=== PATIENT | male | born 1990 | race Two or more races ===

== ENCOUNTER 2016-07-15 17:09 | Emergency (ER) | payer MEDICAID ==
[~2016-07-15] VITALS: Ht 177.8 cm; Wt 68.0 kg
[2016-07-15 22:42] LABS: Basophils # (auto) 0.1 uL; Basophils % (auto) 0.9 % (0.0-2.0); Eosinophils # (auto) 0.3 uL; Eosinophils % (auto) 3.6 % (0.0-7.0); Hematocrit 42.5 % (41.0-53.0); Hemoglobin 14.5 g/dL (13.5-17.5); Lymphocytes # (auto) 3.2 uL; Lymphocytes % (auto) 39.8 % (10.0-50.0); Mean Corpuscular Hemoglobin 32.3 pg (28.0-32.0); Mean Corpuscular Volume 94.9 fL (80.0-100.0); Mean Platelet Volume 7.4 fL (7.4-10.4); Monocytes # (auto) 0.8 uL; Monocytes % (auto) 9.6 % (0.0-12.0); Neutrophils # (auto) 3.7 uL; Neutrophils % (auto) 46.1 % (37.0-80.0); Platelet Count (auto) 254 10^3/uL (140-450); Red Cell Distribution Width 13.7 % (11.6-16.0); White Blood Cell 7.9 10^3/uL (4.4-10.8)
[2016-07-15 23:02] LABS: Albumin 3.2 g/dL (3.4-5.0); Calcium 8.4 mg/dL (8.5-10.1); Potassium 3.4 mmol/L (3.5-5.1)
[2016-07-15 23:05] LABS: Bilirubin, Total 0.7 mg/dL (0.2-1.0); Total Protein 7.2 g/dL (6.4-8.2)
[2016-07-15] MEDS ORDERED: SODIUM CHLORIDE 0.9% 1,000 ML IV ONE (23:08)
[2016-07-16 00:22] VITALS: BP 133/72
== END 2016-07-16 00:31 | disposition home or self-care (01) ==
LOC: ER 17:09 → EDBD 17:09 → ER 07-16 00:30
DX: E86.0 Dehydration (principal); Z59.0 Homelessness; F17.210 Nicotine dependence, cigarettes, uncomplicated; F15.10 Other stimulant abuse, uncomplicated
CPT/HCPCS: 36415; 80053; 85025; 99284; J7030

== ENCOUNTER 2018-09-19 21:57 | Inpatient (IN) | payer MEDICAID ==
[~2018-09-19] VITALS: Ht 175.3 cm; Wt 74.1 kg
[2018-09-19 23:15] LABS: Basophils # (auto) 0.1 uL; Basophils % (auto) 1.2 % (0.0-2.0); Eosinophils # (auto) 0.1 uL; Eosinophils % (auto) 0.9 % (0.0-7.0); Hematocrit 48.3 % (41.0-53.0); Hemoglobin 16.5 g/dL (13.5-17.5); Lymphocytes # (auto) 2.9 uL; Lymphocytes % (auto) 26.5 % (10.0-50.0); Mean Corpuscular Hemoglobin 32.7 pg (28.0-32.0); Mean Corpuscular Hgb Conc. 34.2 g/dL (32.0-36.0); Mean Corpuscular Volume 95.7 fL (80.0-100.0); Monocytes # (auto) 1.1 uL; Monocytes % (auto) 9.8 % (0.0-12.0); Neutrophils # (auto) 6.8 uL; Neutrophils % (auto) 61.6 % (37.0-80.0); Nucleated Red Blood Cells % 0.1 %; Platelet Count (auto) 413 10^3/uL (140-450); Red Blood Cells 5.05 10^6/uL (4.5-5.90); Red Cell Distribution Width 13.1 % (11.8-14.3); White Blood Cell 11.1 10^3/uL (4.4-10.8)
[2018-09-19 23:40] LABS: Albumin 4.2 g/dL (3.4-5.0); BUN/Creatinine Ratio 14.4; Calcium 9.2 mg/dL (8.5-10.1); Potassium 3.4 mmol/L (3.5-5.1)
[2018-09-19 23:43] LABS: Bilirubin, Total 0.9 mg/dL (0.2-1.0)
[2018-09-20] MEDS ORDERED: VANCOMYCIN 1GM/250ML 250 ML IV ONE (04:00)
[2018-09-20] MEDS ORDERED: PIPERACILLIN-TAZOB 3.375GM 100 ML IV ONE (04:00)
[2018-09-20] MEDS ORDERED: ONDANSETRON HCL 4 MG/2 ML VIAL IV PRN (07:00)
[2018-09-20] MEDS ORDERED: HYDROcodone-ACET 5/325MG TAB PO PRN (07:00)
[2018-09-20] MEDS ORDERED: ACETAMINOPHEN 500 MG TAB PO PRN (07:00)
[2018-09-20 07:07] LABS: Urine Bacteria FEW /hpf (None Seen); Urine Blood Negative /uL (Negative); Urine Mucus FEW (None Seen); Urine Specific Gravity 1.024 (1.001-1.035); Urine WBC 2 /hpf (0 - 3)
[2018-09-20 07:20] LABS: Basophils # (auto) 0.1 uL; Basophils % (auto) 1.3 % (0.0-2.0); Eosinophils # (auto) 0.1 uL; Eosinophils % (auto) 1.8 % (0.0-7.0); Hematocrit 41.6 % (41.0-53.0); Hemoglobin 14.8 g/dL (13.5-17.5); Mean Corpuscular Hgb Conc. 35.6 g/dL (32.0-36.0); Mean Corpuscular Volume 95.4 fL (80.0-100.0); Monocytes # (auto) 0.8 uL; Monocytes % (auto) 10.2 % (0.0-12.0); Neutrophils # (auto) 4.6 uL; Neutrophils % (auto) 60.7 % (37.0-80.0); Nucleated Red Blood Cells % 0.1 %; Platelet Count (auto) 322 10^3/uL (140-450); Red Blood Cells 4.36 10^6/uL (4.5-5.90); Red Cell Distribution Width 13.2 % (11.8-14.3); White Blood Cell 7.6 10^3/uL (4.4-10.8)
[2018-09-20 07:30] LABS: Alcohol, Urine < 3.0 mg/dL (0-5); Amphetamine Screen, Urine POSITIVE (NEGATIVE); Barbiturate Scree,Urine NEGATIVE (NEGATIVE); Benzodiazephine Screen, Urine NEGATIVE (NEGATIVE); Cannabinoid Screen, Urine POSITIVE (NEGATIVE); Cocaine Screen, Urine NEGATIVE (NEGATIVE); Opiate Scree,Urine NEGATIVE (NEGATIVE); Phencyclidine Screen, Urine NEGATIVE (NEGATIVE)
[2018-09-20 07:37] LABS: BUN/Creatinine Ratio 12.5; Calcium 8.7 mg/dL (8.5-10.1); Potassium 3.5 mmol/L (3.5-5.1)
[2018-09-20] MEDS: cefTRIAXone 1GM/50ML D5W 50 ML IV SCH (09:07)
[2018-09-20] MEDS: FAMOTIDINE 20 MG TAB PO SCH (09:32)
--- NOTE | 2018-09-20 13:55 | NUR ---
MS admit from ER [facility] admitted to tele/MS after SBAR received. Patient oriented to Lida Sanches, RN primary RN, unit, room, bed, and unit policies regarding patient care and visiting hours. Patient weighed by bedscale and encouraged to call if he needs something. All questions and concerns addressed, patient verbalized understanding. Note:
[2018-09-20] MEDS: CLINDAMYCIN 600MG IV 50 ML IV SCH ×2 (15:45→21:52)
--- NOTE | 2018-09-20 16:15 | NUR ---
WOUND CARE NOTE: Wound care in to see patient per wound care request regarding"Right fourth finger laceration/cellulitis". Patient is 27 years old male with admitting diagnosis of R Ring Finger Cellulitis. Patient is resting in bed in Rm 235. He's awake,alert and oriented. He's in no stated pain at this time. He's ambulatory and able to turn and reposition self. His current Hilario score is 22. Noted patient's R 4th finger has 0.5x3x0.3cm laceration. Wound is red with bright red edematous periwound, no drainage, no odor noted. Patient is not aware how he got the wound, he denies any trauma to his R 4th finger. Bedside nurse sent wound culture specimen to lab for processing. Cleansed patient's Rt 4th finger wound with wound cleanser, patted dry with sterile gauze, applied Thera honey gel ,covered with Opti foam dressing, secured with CoBan. Patient tolerated well and denies any other wound. RECOMMENDATION: Daily/PRN dressing change to R 4th finger wound, elevate affected extremity on pillows, continue monitoring by wound care while patient is hospitalized. Addendum: 09/20/18 at 1832 by Michelle Leiva RN Amended: Links added.
[2018-09-20 17:00] VITALS: BP 129/73
--- NOTE | 2018-09-20 19:20 | NUR ---
OPENING SHIFT NOTE Assumed care of patient, who is A&O x4. Currently on RA with no s/s of SOB or distress. Denies pain at this time. Patient is ambulatory without the use of assistive devices. Dressing to right fourth finger is CDI. POC discussed with patient who verbalizes understanding. Bed is in low locked position with side rails up x2. Patient encouraged to call for assistance when needed. Will continue to monitor for changes PRN.
[2018-09-20 22:20] VITALS: BP 134/72
[2018-09-21 05:21] VITALS: BP 117/65
[2018-09-21] MEDS: CLINDAMYCIN 600MG IV 50 ML IV SCH ×3 (05:38→22:25)
--- NOTE | 2018-09-21 05:38 | NUR ---
IV REMOVAL Patient found with 18 gauge IV dislodged from left AC. Catheter is fully intact. pressure dressing applied. Linens changed.
--- NOTE | 2018-09-21 07:30 | NUR ---
Opening Shift Note Assumed care of patient, awake and alert. No S/S of distress/SOB or pain. Instructed on POC and to call for assist PRN, will continue to monitor for changes Q1hr and PRN. Bed in low and locked position, rails up x2, no-slip socks on. Patient completed shower independently.
[2018-09-21 08:33] LABS: Basophils # (auto) 0.1 uL; Eosinophils # (auto) 0.1 uL; Hemoglobin 14.9 g/dL (13.5-17.5); Lymphocytes # (auto) 2.1 uL; Lymphocytes % (auto) 28.3 % (10.0-50.0); Mean Corpuscular Hemoglobin 33.5 pg (28.0-32.0); Mean Corpuscular Hgb Conc. 34.6 g/dL (32.0-36.0); Monocytes # (auto) 0.8 uL; Monocytes % (auto) 10.9 % (0.0-12.0); Neutrophils # (auto) 4.2 uL; Neutrophils % (auto) 57.8 % (37.0-80.0); Platelet Count (auto) 301 10^3/uL (140-450); Red Blood Cells 4.43 10^6/uL (4.5-5.90); Red Cell Distribution Width 13.3 % (11.8-14.3); White Blood Cell 7.3 10^3/uL (4.4-10.8)
[2018-09-21 08:54] LABS: BUN/Creatinine Ratio 16.7; Calcium 8.9 mg/dL (8.5-10.1); Potassium 4.3 mmol/L (3.5-5.1)
[2018-09-21] MEDS: FAMOTIDINE 20 MG TAB PO SCH (08:56)
[2018-09-21] MEDS: cefTRIAXone 1GM/50ML D5W 50 ML IV SCH (08:57)
[2018-09-21 09:15] VITALS: BP 124/66
[2018-09-21 12:59] VITALS: BP 117/68
--- NOTE | 2018-09-21 14:40 | NUR ---
DR MCKEE AT BEDSIDE
[2018-09-21 17:04] VITALS: BP 132/69
--- NOTE | 2018-09-21 19:45 | NUR ---
Opening Shift Note Assumed care of patient, awake and alert, ambulatory. No S/S of distress/SOB or pain. dressing to right 4th finger dry and intact. Instructed on POC and to call for assist PRN, patient verbalized understanding, call light within reach, will continue to monitor for changes Q1hr and PRN.
[2018-09-21 21:39] VITALS: BP 125/71
[2018-09-22 05:09] VITALS: BP 121/66
[2018-09-22] MEDS: CLINDAMYCIN 600MG IV 50 ML IV SCH ×2 (06:14→14:00)
--- NOTE | 2018-09-22 07:05 | NUR ---
ASUMMED CARE FROM SERVICE UNIT OPERATOR. PATIENT CURRENTLY WITH NO COMPLAINTS. PLAN OF CARE DISCUSSED WITH PATIENT .
[2018-09-22 07:52] VITALS: BP 140/80
[2018-09-22] MEDS: cefTRIAXone 1GM/50ML D5W 50 ML IV SCH (09:23)
[2018-09-22] MEDS: FAMOTIDINE 20 MG TAB PO SCH (09:23)
--- NOTE | 2018-09-22 10:30 | NUR ---
WOUND CARE DRESSINGS CHANGED ORDERED, TOLERATED WELL, EDUCATION PROVIDED.
--- NOTE | 2018-09-22 11:30 | NUR ---
DR MCKEE CAME, WROTE DC ORDERS, ANTIBIOTIC CALLED TO [facility].
--- NOTE | 2018-09-22 12:02 | NUR ---
Nutrition Assessment/consult Notes please see attached link for complete assessment Est. Needs BW [id number] kcal (25-30 kcal/kgBW), 74-88 gms pro (1.0-1.2 gms/kgBW). Will continue to monitor pertinent labs and reassess nutrient need prn Addendum: 09/22/18 at [address] Amended: Links added.
[2018-09-22] MEDS ORDERED: LEVO-28 PO (12:16)
[2018-09-22 12:25] VITALS: BP 112/67
[2018-09-22 13:33] VITALS: BP 112/67
--- NOTE | 2018-09-22 16:10 | NUR ---
Received referral to see pt as he is homeless. The pt also has a substance abuse problem. Gave pt a list of homeless shelters, although pt has stayed at the local prison prior. Gave list of substance abuse programs offered by the [facility]. Pt was agreeable to the resources. A taxi ride was provided for the pt.
--- NOTE | 2018-09-22 16:22 | NUR ---
Discharge instructions given as ordered. Encourage to follow up with PMD as instructed. All questions and concerns addressed. Patient verbalized understanding. Medication reconciliation form completed and copy given to patient. . IV removed with catheter intact, pressure dressing applied. Patient taken to taxi, ambulatory, refused wheelchair with all personal belongings, accompanied by staff. No distress noted at time of departure.
== END 2018-09-22 16:22 | disposition home or self-care (01) | DRG 383 ==
LOC: EDBD 21:57 → ER 22:04 → OVERFLOW 22:05 → EAST 09-20 14:02
PROVIDERS: ADMIT Nurse Practitioner Family; ATTEND Internal Medicine
DX: L03.011 Cellulitis of right finger (principal); B95.61 Methicillin susceptible Staphylococcus aureus infection as the cause of diseases classified elsewhere; F12.10 Cannabis abuse, uncomplicated; F15.10 Other stimulant abuse, uncomplicated; F41.9 Anxiety disorder, unspecified; F17.210 Nicotine dependence, cigarettes, uncomplicated; S61.212A Laceration without foreign body of right middle finger without damage to nail, initial encounter; X58.XXXA Exposure to other specified factors, initial encounter; Z59.0 Homelessness; Y93.89 Activity, other specified; Y92.89 Other specified places as the place of occurrence of the external cause; Y99.8 Other external cause status; Z79.899 Other long term (current) drug therapy
CPT/HCPCS: 36415; 73140; 73200; 80048; 80053; 80307; 81001; 83605; 85025; 87040; 87077; 87081; 87186; 87205; 96365; 96366; 96367; 96368; G0378; J0696; J2543; J3490

== ENCOUNTER 2018-09-29 17:08 | Emergency (ER) | payer MEDICAID ==
[~2018-09-29] VITALS: Ht 175.3 cm; Wt 72.6 kg
[~2018-09-29 17:08] MED LIST: LEVO-28 PO
[2018-09-29 18:38] VITALS: BP 128/72
[2018-09-29] MEDS: KETOROLAC TROMETH 60MG/2ML VIAL IM ONE (21:56)
== END 2018-09-29 22:08 | disposition home or self-care (01) ==
LOC: ER 17:08 → EDBD 17:08 → ER 22:08
DX: B35.3 Tinea pedis (principal); F17.210 Nicotine dependence, cigarettes, uncomplicated; F15.90 Other stimulant use, unspecified, uncomplicated; Z79.899 Other long term (current) drug therapy
CPT/HCPCS: 96372; 99283; J1885